=== PATIENT | female | born 1975 | race Caucasian/White ===

== ENCOUNTER → 2016-07-03 | Outpatient (CLI) | payer OTHER ==
[~2016-07-03] MED LIST: MULT1CHW41 PO; OMEP20TA PO
[2016-07-03 12:56] LABS: HEMATOCRIT 37.6 % (35.0-46.0); MEAN CELL VOLUME 96.2 FL (80.0-100.0); MEAN CORPUSCULAR HEMOGLOBIN 32.4 PG (27.0-34.0); MEAN CORPUSCULAR HGB CONC 33.7 % (32.0-36.0); PLATELET COUNT 323 TH/MM3 (150-450); RED BLOOD COUNT 3.91 MIL/MM3 (4.00-5.30); RED CELL DISTRIBUTION WIDTH 12.8 % (11.6-17.2); REVIEW FLAG FINAL; WHITE BLOOD COUNT 7.9 TH/MM3 (4.0-11.0)
== END ==
LOC: CPRE 12:26
PROVIDERS: ATTEND Obstetrics & Gynecology
DX: Z01.812 Encounter for preprocedural laboratory examination (principal)
CPT/HCPCS: 36415; 85027

== ENCOUNTER → 2016-07-09 | Day surgery (SDC) | payer OTHER ==
[~2016-07-09] VITALS: Ht 160 cm; Wt 90.2 kg
[~2016-07-09] MED LIST changes: +*morphine SULFATE 8 MG/ML PERIprocedure ONLY ONE; +ACETAMINOPHEN 1000 MG/100 ML VIAL IV ONE; +APREPITANT 40 MG CAP ONE; +DICLOFENAC SODIUM 37.5 MG/ML VIAL IV PUSH ONE; +DO NOT ADM ANY ANTICOAGULANT DRUGS PRN; +HYDROmorphone HCL PF 2 MG/ML VIAL ONE; +MIDAZOLAM HCL 2 MG/2 ML VIAL ONE; +ONDANSETRON HCL 4 MG/2 ML VIAL IV PUSH ONE; +PROPOFOL 200 MG/20 ML AMP IV ONE; +SUGAMMADEX SODIUM 200 MG/2 ML VIAL IV PUSH ONE; +fentaNYL CITRATE 250 MCG/5 ML AMP ONE; +oxyCODONE/ACETAMINOPHEN 5 MG/325 MG TAB PO PRN
[2016-07-09 10:28] VITALS: BP 121/83; PULSE 67; RESP 20; TEMP 98.6; O2SAT 98
--- NOTE | 2016-07-09 13:18 | MP ---
cc: NAYANA CUELLAR DATE OF SURGERY July 09, 2016 PREOPERATIVE DIAGNOSES 1. Menorrhagia. 2. Dysfunctional uterine bleeding. POSTOPERATIVE DIAGNOSES 1. Menorrhagia. 2. Dysfunctional uterine bleeding. PROCEDURE Examination under anesthesia, dilation of the cervix, hysteroscopic exam and NovaSure endometrial ablation. ANESTHESIA General. SURGEON Sabas Cuellar MD FINDINGS On examination under anesthesia, the vagina was clean. The cervix was parous, without lesions, and easily dilated. The uterus was normal size, shape and consistency, anteverted, anteflexed and the adnexa were negative for masses. The NovaSure was done with a length of 4.5 and a width of 4.4. Hysteroscopic exam revealed endometrial cavity that sounded to 8 cm. Both ostia were clearly seen. No distinct reason for the heavy bleeding was seen. COMPLICATIONS None. COUNTS Correct. ESTIMATED BLOOD LOSS Minimal. DISPOSITION The patient tolerated the procedure well, went to the recovery room in good condition. PROCEDURE The patient was taken to the operating room, identified by name band and verbally, given a general anesthetic, prepped and draped in the usual sterile fashion for vaginal surgery. Time-out was taken and a weighted speculum was placed in the vagina after examination under anesthesia was given. The anterior lip of the cervix was grasped with a single-tooth tenaculum. The cervix was serially dilated without difficulty. The hysteroscope was inserted and the entire endometrial cavity was carefully visualized. There were no polyps, submucous myomas or other concerning features. It looked fairly normal slightly, slightly wide. The NovaSure was then placed and the cavity assessment was completed and endometrial ablation was made with a length of 4.5 and a width of 4.4. At the end we removed all instruents. She tolerated the procedure well and went to the recovery room in good condition. MD MONCHO JohnV/QUINTON /12:40 PM /1:04 PM
[2016-07-09 14:07] VITALS: BP 134/75; PULSE 56; RESP 18; TEMP 97.4; O2SAT 99
== END | disposition home or self-care (01) ==
LOC: HSDC 09:30
PROVIDERS: ATTEND Obstetrics & Gynecology
DX: N92.0 Excessive and frequent menstruation with regular cycle (principal); N93.8 Other specified abnormal uterine and vaginal bleeding
CPT/HCPCS: 00952; 58563; J0131; J1130; J2250; J2270; J2405; J8501; J1170; J3010